=== PATIENT | female | born 1990 | race Native Hawaiian/Other Pacific Islander ===

== ENCOUNTER 2018-03-23 20:48 | Emergency (ER) | payer OTHER ==
[~2018-03-23] VITALS: Ht 152.4 cm; Wt 91.6 kg
[2018-03-23 22:08] VITALS: BP 124/82; TEMP 98.2
== END 2018-03-23 22:15 | disposition home or self-care (01) ==
LOC: ED 20:48
DX: R10.30 Lower abdominal pain, unspecified (principal)
CPT/HCPCS: 99281

== ENCOUNTER 2018-03-25 07:19 | Emergency (ER) | payer OTHER ==
[~2018-03-25] VITALS: Ht 157.5 cm; Wt 91.6 kg
[2018-03-25 08:05] LABS: POTASSIUM 3.8 mmol/L (3.6-5.2)
[2018-03-25 08:08] LABS: PLATELET COUNT 313 K/uL (152-353)
[2018-03-25 12:52] VITALS: BP 120/74; TEMP 98.1
== END 2018-03-25 12:57 | disposition home or self-care (01) ==
LOC: ED 07:19
PROVIDERS: Specialist
DX: R30.0 Dysuria (principal); R10.30 Lower abdominal pain, unspecified
CPT/HCPCS: 36415; 80048; 81000; 81025; 85027; 96374; 99283; J1885; Q9963